=== PATIENT | female | born 1975 | race Caucasian/White ===

== ENCOUNTER 2017-09-01 10:22 | Inpatient (IN) | payer OTHER ==
[~2017-09-01] VITALS: Ht 160 cm; Wt 63.8 kg
[2017-09-01] MEDS ORDERED: hydrOXYzine HCL 50 MG TAB PO PRN (15:15)
[2017-09-01] MEDS ORDERED: ACETAMINOPHEN 325 MG TAB PO PRN (15:15)
[2017-09-01] MEDS ORDERED: MAGNESIUM HYDROXIDE SUSP 30 ML CUP PO PRN (15:15)
[2017-09-01] MEDS ORDERED: diphenhydrAMINE HCL 50 MG/ML VIAL IM PRN (15:15)
[2017-09-01] MEDS ORDERED: ALUMINUM/MAGNESIUM/SIMETH 30 ML CUP PO PRN (15:15)
[2017-09-01 16:59] VITALS: BP 115/69; PULSE 97; RESP 14; TEMP 98.2; O2SAT 98
--- NOTE | 2017-09-01 17:47 | HHI.HP ---
Provisional Diagnosis Admission Date Sep 01, 2017 at 12:54 [place] I. Unspecified psychosis Certification of Person's Competence To Provide Express and Informed Consent I have personally examined Pauly Cole , a person being served at [facility] on, Sep 01, 2017 17:24. Express and informed consent means consent voluntarily given in writing, by a competent person, after sufficient explanation and disclosure of the subject matter involved to enable the person to make a knowing and willful decision without any element of force, fraud, deceit, duress, or other form of constraint or coercion. This person is 18 years of age or older, is not now known to be incompetent to consent to treatment with a guardian advocate, and does not have a health care surrogate or proxy currently making medical treatment decisions. I have found this person to be one of the following: [] Competent to provide express and informed consent, as defined above, for voluntary admission to this facility and is competent to provide express and informed consent for treatment. He/she has the consistent capacity to make well reasoned, willful, and knowing decisions concerning his or her medical or mental health treatment. The person fully and consistently understands the purpose of the admission for examination/placement and is fully capable of personally exercising all rights assured [place] [x] Incompetent to provide express and informed consent to voluntary admission, and this is incompetent to provide express and informed consent to treatment. The person must be transferred to involuntary status and a petition for a guardian advocate filed with the Circuit Court. [] Refusing to provide express and informed consent to voluntary admission but is competent to provide express and informed consent for treatment. The person must be discharged or transferred to involuntary status. Form shall be completed within 24 hours of a person's arrival at the receiving facility and filed in the clinical record of each person: 1. Admitted on a voluntary basis 2. Permitted to provide express and informed consent to his/her own treatment 3. Allowed to transfer from involuntary to voluntary status 4. Prior to permitting a person to consent to his or her own treatment after having been previously found incompetent to consent to treatment. History of Present Illness Capacity: Lacks Capacity HPI Patient is a 42-year-old woman, single, no children, domicile appearance, unemployed, with unclear past psychiatric history, who was brought in under Ayala act from [facility] due to concern of acute psychosis in trying to harm herself which patient was admitted to the inpatient psychiatry unit for further evaluation and management. As per Ayala act, patient paranoid stating her work and put a camera down her stomach. Parents stayed patient has been putting her hand on her throat and attempted to retrieve a camera. States she tried to drink chemicals in order to not the camera but parents stopped her . As per documentation from notes from [facility], patient had presented to the ER with throat pain and upon evaluation had been talking to people who were not there and upon reevaluation patient was placed under Ayala act due to concern for self-harm and acute psychosis. As per urine toxicology done at [facility] patient was positive only for methadone but was noted to have an elevated white count on CBC (16.1), hCG was negative, blood alcohol level was negative. Patient was found lying in hospital bed, superficially cooperative with interview with inspector automatic typewriter and nurse. Patient states that she has not slept in many days and additionally stressed out recently and has not been eating well as well. Patient reports that her main stressor has been recent involvement with her boyfriend whom she had individualization 4 days ago and had previously been staying with him. Patient reports that she had had decreased sleep for the past 4 days, decreased appetite, feeling overwhelmed, decreased energy and concentration denies feeling sad or depressed denies any suicidal homicidal ideations at this time. Patient reports that this has not happened previously admitted the first time she has felt this way. She denies any racing thoughts, increased spending or risky behavior. Patient states that she was brought in by EMS activated by her parents stated they were concerned that she was having what her brother has referring to her brothers diagnosed schizophrenia. She states that she was throwing up in the bathroom and that her parents thought that she was doing "stuff like my brother". Patient states that she was actually trying to throw up. Patient signed reports feeling tired , denies any SI or HI, AVH or delusions at time of interview but also important that the patient was superficially cooperative noted be very somnolent during interview and reliability was low due to patient's superficially cooperative with interview. Past psychiatric history: Patient denies but as per collateral information obtained by nurse when speaking with mother over the phone stated the patient had a previous diagnosis of bipolar disorder, had a previous hospitalization in 2012, no previous medication trials, patient denies any previous suicide attempt or self-injurious behavior. Patient has history of opiate use disorder and on methadone maintenance treatment program for the past 8 years. Current clinic: In [facility] clinic which she last was seen 3 days ago and reports being a 70 mg of methadone. Family history: Brother with schizophrenia Substance use disorder: tobacco 1 pack per day, denies alcohol or any other drug use but does report previous opiate prescription abuse which she has been on methadone treatment program for the past 8 years. Past medical history: Denies allergies: NKDA Social history: Single, no children, unemployed, domicile with parents Collateral contact (mother) [phone] Review of Systems Except as stated in HPI: all other systems reviewed are Neg Past Psych History Violence risk - others (6 mos) Low Violence risk - self (6 mos) Elevated due to recent report of patient attempting to pour chemical down her throat and pull "camera" out of her stomach Substance Abuse History Drugs/Alcohol past 12 months tobacco 1 pack per day, denies alcohol or any other drug use but does report previous opiate prescription abuse which she has been on methadone treatment program for the past 8 years. Past Family Social History Coded Allergies: No Known Allergies (Unverified , 09/01/17) Current Medications Medications (Trade) Dose Ordered Sig/Edgar Route Start Time Stop Time Status Last Admin (Atarax) 50 mg Q6H PRN PO 09/01/17 15:15 (Benadryl) 50 mg Q6H PRN PO 09/01/17 15:15 (Benadryl Inj) 50 mg Q6H PRN IM 09/01/17 15:15 (Tylenol) 650 mg Q4H PRN PO 09/01/17 15:15 (Milk Of Magnesia Liq) 30 ml DAILY PRN PO 09/01/17 15:15 (Mag-Al Plus Susp Liq) 30 ml Q6H PRN PO 09/01/17 15:15 (Habitrol 21 Mg Patch.24 Hr) 1 patch DAILY T-DERMAL 09/02/17 09:00 Miscellaneous Information 1 HS T-DERMAL 09/01/17 21:00 (Dolophine) 10 mg Q8H PRN PO 09/01/17 16:30 Family Psych History Brother with schizophrenia Social History Single, no children, unemployed, domiciled with parents Patient's Strengths (min. 2) Verbal, access to care Physical Exam Patient noted to be in acute distress but noted to be very somnolent during interview and examination, not noted to have any tremors, signs of EPS nor any gross motor abnormalities noted. No noted psychomotor retardation or agitation noted. Vital Signs Vital Signs Date Time Temp Pulse Resp B/P (MAP) Pulse Ox O2 Delivery O2 Flow Rate FiO2 09/01/17 16:59 98.2 97 14 115/69 (84) 98 Mental Status Examination Appearance: Disheveled Consciousness: Somnolent Orientation: Person Speech: Slow, Incoherent (at times) Language: Adequate Fund of Knowledge: Inadequate Attention and Concentration: Inadequate Memory: Impaired Mood: Other ("overwhelmed") Affect: Blunt Thought Process & Associations: Other (concrete) Thought Content: Delusional Hallucination Type: None Delusion Type: Bizarre Suicidal Ideation: No Suicidal Plan: No Suicidal Intention: No Homicidal Ideation: No Homicidal Plan: No Homicidal Intention: No Insight: Poor Judgment: Poor Assessment & Plan Problem List: (1) Unspecified psychosis ICD Codes: F29 - Unspecified psychosis not due to a substance or known physiological condition Assessment & Plan Estimated LOS: 5-7 days. Patient is a 42-year-old woman with an alleged diagnosis of bipolar disorder as per collateral, although patient denies any history, opiate prescription use disorder on methadone maintenance treatment program for the past 8 years, was brought in under Respectance act from a different hospital due to acute psychosis as well as concern for self-harm due to the same which she was answered to the inpatient psychiatry for further evaluation and management. Patient upon interview noted to be very poor historian denying any symptomatology 9 history at this time is unreliable due to current presentation. As per Respectance act patient was noted to be psychotic and mother reported patient endorsing bizarre delusions of portion having put a camera in her throat and attempted to remove its manually as well as pour chemicals down her throat. We'll start risperidone 1 mg by mouth twice a day for psychosis. Confirmation pending of current Methadose at [place] meth[facility], for now methadone 10 mg by mouth daily to prevent withdrawal from opioids, labs ordered. Collateral information pending. Continue to encourage patient to maintain personal hygiene. Petition for involuntary hospitalization started, second opinion requested. Discharge planning in progress Discharge Planning Patient to return back to her parent's residence once psychiatrically stable. Levi Odonnell MD Sep 01, 2017 17:47
--- NOTE | 2017-09-01 18:15 | PD.CONS ---
HPI Service [facility] Hospitalists Consult Requested By psychiatry Reason for Consult Medical management. Primary Care Physician Keaton Rodríguez M.D. Diagnoses: History of Present Illness Ms. Cole is a 42 year old female with no significant medical history who was admitted to the psychiatry under Ayala act due to acute psychosis and delusional thoughts. Hospitalist service was consulted for medical management. At the time of this interview, patient denies any medical concerns. She requests to re-start her methadone. She goes to a methadone clinic and takes 70mg of Methadone daily. At this time, she denies any chest pain, shortness of breath, cough, fever, chills. No abdominal pain. No changes in bowel or bladder habits. Review of Systems Except as stated in HPI: all other systems reviewed are Neg Past Family Social History Allergies: Coded Allergies: No Known Allergies (Unverified , 09/01/17) Past Medical History No significant medical history. Past Surgical History No significant surgical history Family History No family history of heart disease, diabetes. Social History Smokes 1 ppd. Uses Methadone through a methadone clinic. Denies using any illicit drugs or using alcohol. Physical Exam Vital Signs Vital Signs Date Time Temp Pulse Resp B/P (MAP) Pulse Ox O2 Delivery O2 Flow Rate FiO2 09/01/17 16:59 98.2 97 14 115/69 (84) 98 Physical Exam GENERAL: This is a well-nourished, well-developed patient, in no apparent distress. Flat affect. SKIN: No rashes, ecchymoses or lesions. Warm and dry. HEAD: Atraumatic. Normocephalic. No temporal or scalp tenderness. EYES: Pupils equal round and reactive. No injection or drainage. ENT: Nose without bleeding, purulent drainage or septal hematoma. Airway patent. NECK: Trachea midline. No lymphadenopathy. Supple, nontender, no meningeal signs. CARDIOVASCULAR: Regular rate and rhythm without murmurs, gallops, or rubs. No JVD. RESPIRATORY: Clear to auscultation. Breath sounds equal bilaterally. No wheezes , rales, or rhonchi. GASTROINTESTINAL: Abdomen soft, non-tender, nondistended. No guarding. MUSCULOSKELETAL: Extremities without clubbing, cyanosis, or edema. NEUROLOGICAL: Awake and alert. Cranial nerves II through XII intact. No focal neurological deficits. Normal speech. Assessment and Plan Problem List: (1) Methadone maintenance therapy patient ICD Code: F11.20 - Opioid dependence, uncomplicated (2) Unspecified psychosis ICD Code: F29 - Unspecified psychosis not due to a substance or known physiological condition Assessment and Plan Ms. Cole is a 42 year old female with no significant medical history who was admitted to the psychiatry unit under Ayala act due to acute psychosis, delusional thoughts. Hospitalist service was consulted for medical management. - Acute psychosis - Management per psychiatry team. Patient was started on Risperidone. - Methadone maintenance therapy - Patient reports taking about 70mg of Methadone daily. - We can start patient on Methadone 10mg PO TID and taper her over the next 3 -4 days. - Patient is hemodynamically stable. Labs are pending and will review as they become available. Full code. Ambulation. Thank you for the consult. We will follow patient with you. Elen Mcnally DO Sep 01, 2017 6:15 pm
[2017-09-01] MEDS: NICOTINE 14 MG/24 HR PATCH T-DERMAL SCH (18:48)
[2017-09-01] MEDS: risperiDONE 1 MG TAB PO SCH ×2 (20:48→20:53)
[2017-09-01] MEDS: METHADONE HCL 10 MG TAB PO PRN (20:57)
[2017-09-01] MEDS ORDERED: REMOVE OLD NICOTINE PATCH T-DERMAL SCH (21:00)
[2017-09-02] MEDS: METHADONE HCL 10 MG TAB PO PRN (05:08)
[2017-09-02 06:00] VITALS: BP 129/78; PULSE 113; RESP 16; TEMP 97.4; O2SAT 100
[2017-09-02] MEDS: risperiDONE 1 MG TAB PO SCH ×2 (08:07→20:23)
[2017-09-02] MEDS: NICOTINE 14 MG/24 HR PATCH T-DERMAL SCH (08:08)
[2017-09-02] MEDS: REMOVE OLD PATCH T-DERMAL SCH (08:08)
[2017-09-02] MEDS ORDERED: NICOTINE 21 MG/24 HR PATCH T-DERMAL SCH (09:00)
[2017-09-02] MEDS ORDERED: METHADONE HCL 10 MG TAB PO ONE (13:45)
--- NOTE | 2017-09-02 14:04 | EKG ---
Date Performed: 09/01/2017 Time Performed: 16:50:09 PTAGE: 42 years EKG: Sinus rhythm WITH SINUS ARRHYTHMIA WITH SHORT MN INTERVAL BORDERLINE ECG NO PREVIOUS TRACING DOCTOR: Remington James Interpretating Date/Time 09/02/2017 14:02:54
--- NOTE | 2017-09-02 16:08 | HHI.PYPN ---
Subjective Remarks Patient was seen and case discussed with nursing. Patient continues to improve. She says she felt "overwhelmed" before admission. Denies having made any suicidal statements. Tolerating medications well. Sleeping and eating well. She is superficial during the interview and minimizes her psychotic behavior before admission Mental Status Examination Appearance: Disheveled Consciousness: Alert Orientation: Person, Place Speech: Slow, Incoherent (at times) Language: Adequate Fund of Knowledge: Inadequate Attention and Concentration: Adequate Memory: Impaired Mood: Other ("overwhelmed") Affect: Blunt Thought Process & Associations: Other (concrete) Thought Content: Bizarre thinking Hallucination Type: None Delusion Type: Bizarre Suicidal Ideation: No Suicidal Plan: No Suicidal Intention: No Homicidal Ideation: No Homicidal Plan: No Homicidal Intention: No Insight: Poor Judgment: Poor Results Vitals/IOs Vital Signs Date Time Temp Pulse Resp B/P (MAP) Pulse Ox O2 Delivery O2 Flow Rate FiO2 09/02/17 06:00 97.4 113 16 129/78 (95) 100 Assessment & Plan Problem List: (1) Unspecified psychosis ICD Codes: F29 - Unspecified psychosis not due to a substance or known physiological condition Assessment & Plan Appears improved from yesterday, continue current treatment plan Justification for Cont. Inpt. Patient would decompensate in a less restrictive setting Rodriguez Casiano DO Sep 02, 2017 16:08
[2017-09-02 18:21] VITALS: BP 137/83; PULSE 116; RESP 18; TEMP 97.9; O2SAT 100
[2017-09-02 18:23] VITALS: BP 137/83; PULSE 116; RESP 18; TEMP 97.9; O2SAT 100
[2017-09-02] MEDS: diphenhydrAMINE HCL 50 MG CAP PO PRN (20:25)
[2017-09-03 06:14] VITALS: BP 123/70; PULSE 110; RESP 18; TEMP 98.1; O2SAT 100
[2017-09-03] MEDS: NICOTINE 14 MG/24 HR PATCH T-DERMAL SCH (08:58)
[2017-09-03] MEDS: risperiDONE 1 MG TAB PO SCH ×2 (08:58→21:20)
[2017-09-03] MEDS: REMOVE OLD PATCH T-DERMAL SCH (08:58)
[2017-09-03] MEDS: METHADONE HCL 10 MG TAB PO SCH (08:59)
[2017-09-03 10:33] LABS: BASOPHIL # 0.1 TH/MM3 (0-0.2); BASOPHIL % 0.4 % (0.0-2.0); EOSINOPHIL # 0.2 TH/MM3 (0-0.4); EOSINOPHIL % 1.5 % (0.0-4.0); HEMATOCRIT 43.9 % (35.0-46.0); HEMO FLAGS DIFF FINAL; LYMPH % 34.2 % (9.0-44.0); LYMPHOCYTE # 4.7 TH/MM3 (1.0-4.8); MEAN CELL VOLUME 95.4 FL (80.0-100.0); MEAN CORPUSCULAR HEMOGLOBIN 32.3 PG (27.0-34.0); MEAN CORPUSCULAR HGB CONC 33.9 % (32.0-36.0); MONO % 5.9 % (0.0-8.0); PLATELET COUNT 266 TH/MM3 (150-450); RED CELL DISTRIBUTION WIDTH 14.8 % (11.6-17.2); WHITE BLOOD COUNT 13.7 TH/MM3 (4.0-11.0)
[2017-09-03 10:38] LABS: ANION GAP 7 MEQ/L (5-15); AST (GOT) 16 U/L (15-37); BLOOD UREA NITROGEN 10 MG/DL (7-18); CHLORIDE 102 MEQ/L (98-107); GLOMERULAR FILTRATION RATE 77 ML/MIN (>89); POTASSIUM 3.8 MEQ/L (3.5-5.1); SODIUM (NA) 138 MEQ/L (136-145)
[2017-09-03 10:48] LABS: ALKALINE PHOSPHATASE 78 U/L (45-117); ALT (GPT) 19 U/L (10-53); HDL CHOLESTEROL 54.1 MG/DL (40.0-60.0); INDIRECT BILIRUBIN 0.2 MG/DL (0.0-0.8); LDL CHOLESTEROL 91 MG/DL (0-99); TOTAL BILIRUBIN ADULT 0.3 MG/DL (0.2-1.0)
[2017-09-03 14:20] LABS: BACTERIA, URINE RARE /hpf; BLOOD, URINE SMALL (NEG); GLUCOSE,URINE NEG (NEG); KETONE, URINE 10 mg/dL (NEG); MUCUS URINE FEW /lpf (OCC); NITRITE,URINE NEG (NEG); PH, URINE 6.5 (5.0-8.5); SQUAMOUS EPITHELIAL CELL URINE 5 /hpf (0-5); TRANSITIONAL EPI CELLS, URINE <1 /hpf; URINE COLOR YELLOW (YELLW/STRAW)
[2017-09-03 14:21] LABS: COMMENT (UR) CULT NOT INDICATED; CULTURE IF INDICATED CULT NOT INDICATED
--- NOTE | 2017-09-03 16:44 | HHI.PYPN ---
Subjective Remarks Patient was seen and case discussed with nursing. Patient is pleasant and cooperative with exam. She continues to minimize her psychotic behavior before admission. She attributes this to lack of sleep. Nursing has not noted any bizarre behavior statements. No aggressive outbursts. Calm and pleasant during the interview. Tolerating her medications well Mental Status Examination Appearance: Appropriate Consciousness: Alert Orientation: x4, Person, Place Speech: Unremarkable Language: Adequate Fund of Knowledge: Adequate Attention and Concentration: Adequate Memory: Impaired Mood: Appropriate Affect: Appropriate, Blunt Thought Content: Appropriate Hallucination Type: None Delusion Type: Bizarre Suicidal Ideation: No Suicidal Plan: No Suicidal Intention: No Homicidal Ideation: No Homicidal Plan: No Homicidal Intention: No Insight: Poor Judgment: Poor Results Labs Test 09/03/17 09:15 09/03/17 13:30 White Blood Count 13.7 TH/MM3 Red Blood Count 4.60 MIL/MM3 Hemoglobin 14.9 GM/DL Hematocrit 43.9 % Mean Corpuscular Volume 95.4 FL Mean Corpuscular Hemoglobin 32.3 PG Mean Corpuscular Hemoglobin Concent 33.9 % Red Cell Distribution Width 14.8 % Platelet Count 266 TH/MM3 Mean Platelet Volume 8.5 FL Neutrophils (%) (Auto) 58.0 % Lymphocytes (%) (Auto) 34.2 % Monocytes (%) (Auto) 5.9 % Eosinophils (%) (Auto) 1.5 % Basophils (%) (Auto) 0.4 % Neutrophils # (Auto) 8.0 TH/MM3 Lymphocytes # (Auto) 4.7 TH/MM3 Monocytes # (Auto) 0.8 TH/MM3 Eosinophils # (Auto) 0.2 TH/MM3 Basophils # (Auto) 0.1 TH/MM3 CBC Comment DIFF FINAL Differential Comment Blood Urea Nitrogen 10 MG/DL Creatinine 0.81 MG/DL Random Glucose 143 MG/DL Total Protein 7.9 GM/DL Albumin 3.5 GM/DL Calcium Level 9.0 MG/DL Alkaline Phosphatase 78 U/L Aspartate Amino Transf (AST/SGOT) 16 U/L Alanine Aminotransferase (ALT/SGPT) 19 U/L Total Bilirubin 0.3 MG/DL Direct Bilirubin 0.1 MG/DL Sodium Level 138 MEQ/L Potassium Level 3.8 MEQ/L Chloride Level 102 MEQ/L Carbon Dioxide Level 29.0 MEQ/L Anion Gap 7 MEQ/L Estimat Glomerular Filtration Rate 77 ML/MIN Indirect Bilirubin 0.2 MG/DL Triglycerides Level 109 MG/DL Cholesterol Level 167 MG/DL LDL Cholesterol 91 MG/DL HDL Cholesterol 54.1 MG/DL Cholesterol/HDL Ratio 3.08 RATIO Free Thyroxine 1.87 NG/DL Thyroid Stimulating Hormone 3rd Gen 0.317 uIU/ML Urine Color YELLOW Urine Turbidity HAZY Urine pH 6.5 Urine Specific Russell 1.022 Urine Protein TRACE mg/dL Urine Glucose (UA) NEG mg/dL Urine Ketones 10 mg/dL Urine Occult Blood SMALL Urine Nitrite NEG Urine Bilirubin NEG Urine Urobilinogen 2.0 MG/DL Urine Leukocyte Esterase SMALL Urine RBC 2 /hpf Urine WBC 3 /hpf Urine Squamous Epithelial Cells 5 /hpf Urine Transitional Epithelial Cells <1 /hpf Urine Amorphous Sediment MANY Urine Bacteria RARE /hpf Urine Mucus FEW /lpf Microscopic Urinalysis Comment CULT NOT INDICATED Vitals/IOs Vital Signs Date Time Temp Pulse Resp B/P (MAP) Pulse Ox O2 Delivery O2 Flow Rate FiO2 09/03/17 06:14 98.1 110 18 123/70 (87) 100 Assessment & Plan Problem List: (1) Unspecified psychosis ICD Codes: F29 - Unspecified psychosis not due to a substance or known physiological condition Assessment & Plan Continue current treatment plan Justification for Cont. Inpt. Patient would decompensate in a less restrictive setting Rodriguez Casiano DO Sep 03, 2017 16:44
[2017-09-03 18:02] VITALS: TEMP 97.1
[2017-09-03] MEDS: diphenhydrAMINE HCL 50 MG CAP PO PRN (21:20)
[2017-09-04 00:15] VITALS: BP 114/75; PULSE 71; RESP 17; TEMP 98.1; O2SAT 99
[2017-09-04 05:27] VITALS: BP 176/85; PULSE 97; RESP 16; TEMP 97.3; O2SAT 100
[2017-09-04] MEDS: REMOVE OLD PATCH T-DERMAL SCH (08:26)
[2017-09-04] MEDS: METHADONE HCL 10 MG TAB PO SCH (08:26)
[2017-09-04] MEDS: NICOTINE 14 MG/24 HR PATCH T-DERMAL SCH (08:26)
[2017-09-04] MEDS: ATENOLOL 25 MG TAB PO SCH (08:26)
[2017-09-04] MEDS: risperiDONE 1 MG TAB PO SCH ×2 (08:26→21:41)
--- NOTE | 2017-09-04 11:42 | HHI.PYPN ---
Subjective Remarks Patient seen in [place] with nurse Cuca, chart review, patient compliant medications. Patient calm pleasant with me with good eye contact. Now states she had a "breakdown" after being up for a number of days and being in a chaotic relationship with a boyfriend. She states she is now will be moving in with her parents or supportive. Now denies having any camera and her abdomen realizing that this was a delusion. She denies suicidality homicidality voices or visions. Is acknowledge past addiction to opiates and has been on methadone for almost 8 years. She states she wishes to talk her methadone doctor to start tapering of that drug. For now continue observation the patient continues consistent with her behaviors consider discharge 1-2 days Review of Systems Except as stated in HPI: all other systems reviewed are Neg Mental Status Examination Appearance: Appropriate Consciousness: Alert Orientation: x4, Person, Place Speech: Unremarkable Language: Adequate Fund of Knowledge: Adequate Attention and Concentration: Adequate Memory: Impaired Mood: Appropriate Affect: Appropriate, Blunt Thought Content: Appropriate Hallucination Type: None Delusion Type: Bizarre Suicidal Ideation: No Suicidal Plan: No Suicidal Intention: No Homicidal Ideation: No Homicidal Plan: No Homicidal Intention: No Insight: Poor Judgment: Poor Results Labs Test 09/03/17 13:30 Urine Color YELLOW Urine Turbidity HAZY Urine pH 6.5 Urine Specific Jackson 1.022 Urine Protein TRACE mg/dL Urine Glucose (UA) NEG mg/dL Urine Ketones 10 mg/dL Urine Occult Blood SMALL Urine Nitrite NEG Urine Bilirubin NEG Urine Urobilinogen 2.0 MG/DL Urine Leukocyte Esterase SMALL Urine RBC 2 /hpf Urine WBC 3 /hpf Urine Squamous Epithelial Cells 5 /hpf Urine Transitional Epithelial Cells <1 /hpf Urine Amorphous Sediment MANY Urine Bacteria RARE /hpf Urine Mucus FEW /lpf Microscopic Urinalysis Comment CULT NOT INDICATED Vitals/IOs Vital Signs Date Time Temp Pulse Resp B/P (MAP) Pulse Ox O2 Delivery O2 Flow Rate FiO2 09/04/17 05:27 97.3 97 16 176/85 (115) 100 Assessment & Plan Problem List: (1) Brief psychotic disorder ICD Codes: F23 - Brief psychotic disorder Assessment & Plan Estimated LOS: days patient calm cooperative compliant medications. It appears psychosis is resolving. For now continue treatment Justification for Cont. Inpt. At this time patient may decompensate and placed in the lower level of care Discharge Planning Patient states will be moving in with parents once discharged. Request HC Surrog/Guard Advoc?: No Yehuda Stephens MD Sep 04, 2017 11:42
[2017-09-04 15:47] LABS: HEMOGLOBIN A1b 1.9 %; HEMOGLOBIN Ao 83.8 %; HEMOGLOBIN LA1C 2.2 %; HEMOGLOBIN P3 3.7 %
[2017-09-04 16:58] VITALS: BP 114/75; PULSE 71; RESP 18; TEMP 98.1; O2SAT 99
--- NOTE | 2017-09-04 17:04 | RADRPT ---
EXAM DATE/TIME: 09/04/2017 14:53 [place] COMPARISON: No previous studies available for comparison. INDICATIONS : Palpable thyroid nodule. MEDICAL HISTORY : Bipolar disorder. PTSD. SURGICAL HISTORY : None. ENCOUNTER: Initial ACUITY: 1 day PAIN SCORE: 0/10 LOCATION: Bilateral neck MEASUREMENTS: RIGHT LOBE: 7.3 x 2.4 x 1.5 cm LEFT LOBE: 6.0 x 2.1 x 2.0 cm FINDINGS: RIGHT LOBE: Multiple thyroid nodules. The majority of these are predominantly cystic with a anuel d 1.7 x 0.9 x 1.4 cm nodule in the lower lobe. Smaller, 0.9 x 0.4 x 0.9 cm solid nodule also in the l ower pole. Vascularity is within normal limits. LEFT LOBE: Multiple thyroid nodules. These are probably complex cystic and subcentimeter in size with one in the lower pole measuring 5 x 2 x 4 mm in the upper pole nodule measuring 3 x 2 x 3 mm. Vascularity is within normal limits. ISTHMUS: Normal in size without focal abnormality. CONCLUSION: Multiple bilateral nodules, predominantly cystic characteristic of multinodular goiter. Gilbert Russ MD on September 04, 2017 at 16:43 Board Certified Radiologist. This report was verified electronically.
--- NOTE | 2017-09-04 19:06 | HHI.PR ---
Subjective Remarks Follow up for tachycardia, hyperthyroidism. Patient is doing much better, in better mood. Ambulating well. She denies any chest pain, SOB, fever, chills. However, she does report that she has been feeling lump around her anterior throat. Objective Vitals Vital Signs Date Time Temp Pulse Resp B/P (MAP) Pulse Ox O2 Delivery O2 Flow Rate FiO2 09/04/17 16:58 98.1 71 18 114/75 (88) 99 09/04/17 05:27 97.3 97 16 176/85 (115) 100 Result Diagram: 09/03/1715 09/03/1715 Imaging Last Impressions Thyroid Ultrasound 09/04/17 0000 Signed Impressions: Service Date/Time: Monday, September 04, 2017 14:53 - CONCLUSION: Multiple bilateral nodules, predominantly cystic characteristic of multinodular goiter. Gilbert Russ MD Objective Remarks GENERAL: Alert, Oriented x 3, NAD. SKIN: Warm and dry. HEAD: Normocephalic. EYES: No scleral icterus. No injection or drainage. NECK: Supple, trachea midline. No JVD or lymphadenopathy. There is a mass palpated over the anterior neck. CARDIOVASCULAR: Regular rhythm, somewhat tachycardi without murmurs, gallops, or rubs. RESPIRATORY: Breath sounds equal bilaterally. No accessory muscle use. GASTROINTESTINAL: Abdomen soft, non-tender, nondistended. MUSCULOSKELETAL: No cyanosis, or edema. BACK: Nontender without obvious deformity. No CVA tenderness. A/P Problem List: (1) Methadone maintenance therapy patient ICD Code: F11.20 - Opioid dependence, uncomplicated (2) Unspecified psychosis ICD Code: F29 - Unspecified psychosis not due to a substance or known physiological condition (3) Hyperthyroidism ICD Code: E05.90 - Thyrotoxicosis, unspecified without thyrotoxic crisis or storm Assessment and Plan Ms. Cole is a 42 year old female with no significant medical history who was admitted to the psychiatry unit under Ayala act due to acute psychosis, delusional thoughts. Hospitalist service was consulted for medical management. - Acute psychosis - Management per psychiatry team. Patient was started on Risperidone. - Methadone maintenance therapy - Continue Methadone 70mg Qday (home med). - Hyperthyroidism - TSH 0.317 (low), Free T4 1.87 (high) - Thyroid US shows multinodular goiter. Thyroid immunoglobulin levels are pending. - Started patient on Atenolol 25mg Qday which can be titrated up. - Heart rate now is 71. - Will start patient on Methimazole 5mg Qday. - Strongly advised patient to follow up with an parcel post clerk (preferably) or Primary care provider. Full code. Ambulation. Elen Mcnally DO Sep 04, 2017 19:06
--- NOTE | 2017-09-04 19:07 | EKG ---
Date Performed: 09/04/2017 Time Performed: 07:28:39 PTAGE: 42 years EKG: Sinus rhythm NORMAL ECG PREVIOUS TRACING : 09/01/2017 16.50 Compared to prior tracing no significant change DOCTOR: Nasir Kaye Interpretating Date/Time 09/04/2017 19:06:11
[2017-09-05 07:00] VITALS: BP 110/65; PULSE 92; RESP 17; TEMP 98.2; O2SAT 97
[2017-09-05] MEDS: REMOVE OLD PATCH T-DERMAL SCH (08:51)
[2017-09-05] MEDS: NICOTINE 14 MG/24 HR PATCH T-DERMAL SCH (08:51)
[2017-09-05] MEDS: risperiDONE 1 MG TAB PO SCH (08:52)
[2017-09-05] MEDS: METHADONE HCL 10 MG TAB PO SCH (08:53)
[2017-09-05] MEDS: ATENOLOL 25 MG TAB PO SCH (08:53)
[2017-09-05] MEDS ORDERED: METHIMAZOLE 5 MG TAB PO SCH (09:00)
[2017-09-05] MEDS ORDERED: METH5 PO (14:00)
[2017-09-05] MEDS ORDERED: ATEN25TA PO (14:00)
[2017-09-05] MEDS ORDERED: RISP1 PO (14:11)
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
[2017-09-06 23:53] LABS: THYROGLOB ABS LESS THAN 1 IU/mL (< OR = 1)
== END 2017-09-05 16:20 | disposition home or self-care (01) | DRG 885 ==
LOC: H270 12:54 → H260 09-03 14:05
PROVIDERS: ADMIT Psychiatry & Neurology Psychiatry; ATTEND Psychiatry & Neurology Psychiatry
DX: F23 Brief psychotic disorder (principal); F11.20 Opioid dependence, uncomplicated; E05.90 Thyrotoxicosis, unspecified without thyrotoxic crisis or storm; F17.210 Nicotine dependence, cigarettes, uncomplicated
CPT/HCPCS: 76536; 80048; 80061; 80076; 81001; 83036; 84439; 84443; 85025; 86376; 86800; 93005; Q0163

== ENCOUNTER 2017-09-26 09:53 | Inpatient (IN) | payer OTHER ==
[~2017-09-26] VITALS: Ht 154.9 cm; Wt 60.9 kg
[~2017-09-26 09:53] MED LIST: ATEN25TA PO; METH5 PO; RISP1 PO
[2017-09-26] MEDS ORDERED: LORazepam 2 MG/ML VIAL IM PRN (12:15)
[2017-09-26] MEDS ORDERED: diphenhydrAMINE HCL 50 MG/ML VIAL IM PRN (12:15)
[2017-09-26] MEDS ORDERED: ALUMINUM/MAGNESIUM/SIMETH 30 ML CUP PO PRN (12:15)
[2017-09-26] MEDS ORDERED: diphenhydrAMINE HCL 50 MG CAP PO PRN (12:15)
[2017-09-26] MEDS ORDERED: MAGNESIUM HYDROXIDE SUSP 30 ML CUP PO PRN (12:15)
[2017-09-26] MEDS ORDERED: ACETAMINOPHEN 325 MG TAB PO PRN (12:15)
[2017-09-26] MEDS ORDERED: LORazepam 1 MG TAB PO PRN (12:15)
[2017-09-26] MEDS ORDERED: METH10TA PO (13:25)
[2017-09-26] MEDS ORDERED: ATEN1TAB73 PO (13:25)
[2017-09-26] MEDS ORDERED: RISP1 PO (13:25)
[2017-09-26] MEDS ORDERED: METH5 PO (13:25)
[2017-09-26] MEDS ORDERED: NICO21DI2 T-DERMAL (13:25)
[2017-09-26 13:43] VITALS: BP 135/68; PULSE 100; RESP 18; TEMP 98.6; O2SAT 99
[2017-09-26] MEDS ORDERED: METHADONE HCL 10 MG TAB PO ONE (14:15)
--- NOTE | 2017-09-26 17:26 | PD.CONS ---
HPI Service [facility] Hospitalists Consult Requested By Dr. Presley Reason for Consult Medical management Primary Care Physician Keaton Rodríguez M.D. Diagnoses: (1) Methadone use (2) Bipolar depression (3) Hyperthyroidism (4) Nodular thyroid disease History of Present Illness 42-year-old female with past medical history significant for chronic methadone use, tobacco abuse, psychosis, and recently diagnosed hyperthyroidism. Patient currently admitted to psychiatric unit due to bipolar depression. Reviewed chart patient was originally walked into [facility] after reported swallowing to pills that contain cyanide and she was afraid this might kill her. Patient was Ayala acted by emergency physician due to suicidal ideation and self injury. CBC with slightly elevated WBCs 13.9 BMP essentially unremarkable. Chest x-ray negative. She was transported to [facility] department for further evaluation and treatment. Medical team has been consultative for management of medications. Spoke with nurse who states that patient reportedly told him that she had taken 2 pills fabricated by patient's roommate. Patient is seen ambulating in the eason one moment and the next she is in tears and upset. I walk with her back to her room and introduce myself. She continue to cry and is visibly upset patient reports that she has been hearing voices that tell her to hurt herself. She tells me "I have prayed and they wont go away". Interview is limited as she is very upset, I also do not believe she is the best historian. Patient denies any nausea, vomiting, diarrhea, fever, chills or chest pains. When asked if she is having heart palpitations patient shakes her head "yes". Asked patient if she ever followed up with her primary care physician in regards to thyroid nodules or hyperthyroidism. Patient becomes upset in continues to cry and says no she has had too many things on her mind. She is unaware if she continue to take atenolol or methimazole. Review of Systems ROS Limitations: Poor Historian, Other (visibly upset and crying) Except as stated in HPI: all other systems reviewed are Neg Past Family Social History Allergies: Coded Allergies: No Known Allergies (Unverified , 09/01/17) Past Medical History Previous hospitalizations reviewed Bipolar depression Hyperthyroidism Past Surgical History Denies past surgical history Reported Medications Reported Meds & Active Scripts Active Reported Nicotine Patch (Nicotine) 21 Mg/24 Hr Patch 21 Mg T-DERMAL DAILY Tapazole (Methimazole) 5 Mg Tab 5 Mg PO DAILY Risperdal (Risperidone) 1 Mg Tab 1 Mg PO DAILY Methadone (Methadone HCl) 10 Mg Tab 70 Mg PO DAILY Tenormin (Atenolol) 25 Mg Tab 25 Mg PO DAILY Active Ordered Medications Current Medications Medications (Trade) Dose Ordered Sig/Edgar Route Start Time Stop Time Status Last Admin (Ativan) 1 mg Q6H PRN PO 09/26/17 12:15 (Ativan Inj) 1 mg Q6H PRN IM 09/26/17 12:15 (Benadryl) 50 mg Q6H PRN PO 09/26/17 12:15 (Benadryl Inj) 50 mg Q6H PRN IM 09/26/17 12:15 (Tylenol) 650 mg Q4H PRN PO 09/26/17 12:15 (Milk Of Magnesia Liq) 30 ml DAILY PRN PO 09/26/17 12:15 (Mag-Al Plus Susp Liq) 30 ml Q6H PRN PO 09/26/17 12:15 (Dolophine) 70 mg DAILY PO 09/27/17 09:00 (risperDAL) 1 mg BID PO 09/26/17 21:00 (Tapazole) 5 mg DAILY PO 09/27/17 09:00 (Tenormin) 25 mg DAILY PO 09/27/17 09:00 (Habitrol 21 Mg Patch.24 Hr) 1 patch DAILY T-DERMAL 09/27/17 09:00 Miscellaneous Information 1 HS T-DERMAL 09/26/17 21:00 Family History Patient does not report any family history, poor historian. No documented prior family history. Social History Tobacco: Physical Exam Vital Signs Vital Signs Date Time Temp Pulse Resp B/P (MAP) Pulse Ox O2 Delivery O2 Flow Rate FiO2 09/26/17 13:43 98.6 100 18 135/68 (90) 99 Physical Exam GENERAL: This is a well-nourished, well-developed patient, poorly groomed hair, visibly upset and tearful. SKIN: No rashes, ecchymoses or lesions. Cool and dry. HEAD: Atraumatic. Normocephalic. No temporal or scalp tenderness. EYES: Pupils equal round and reactive. Extraocular motions intact. No scleral icterus. No injection or drainage. ENT: Nose without bleeding, purulent drainage or septal hematoma. Throat without erythema. Uvula midline. Airway patent. NECK: Trachea midline. No JVD. Supple, nontender. CARDIOVASCULAR: Tachycardic with regular rhythm without murmurs, gallops, or rubs. RESPIRATORY: Exam limited due to crying. Able to appreciate breath sounds equal bilaterally. GASTROINTESTINAL: Abdomen soft, non-tender, nondistended. MUSCULOSKELETAL: Extremities without clubbing, cyanosis, or edema. No joint tenderness, effusion, or edema noted. No calf tenderness. Negative Homans sign bilaterally. NEUROLOGICAL: Awake and alert and oriented 3. Cranial nerves grossly intact. Motor and sensory grossly within normal limits, ambulating without any difficulties. Moves all extremities. Normal speech, no facial droop. Assessment and Plan Assessment and Plan 42-year-old female admitted to psychiatry after initially presenting to [facility] following reported ingestion of cyanide pills and subsequently Ayala acted by emergency department physician. Patient is currently in psychiatry Department, hospitalist consult for medical management. Bipolar depression, psychosis Reportedly ingesting cyanide tablets - Treatment plan per psychiatry Department - Continues to report hearing voices which are telling her to hurt herself - Labs ordered for tomorrow Hyperthyroidism - During patient's recent hospitalization this past August labs 09/03/17 TSH0.317/free T4 1 0.87 - Thyroid immunoglobulins negative - Thyroid ultrasound done 09/04/17 showing multiple bilateral nodules, predominantly cystic characteristic of multinodular goiter. - During patient's hospitalization at that time she was started on methimazole as well as atenolol. Patient is not aware if she continued these medications after discharge. - She has not yet followed up with PCP or file keeper regarding hyperthyroidism - Noted tachycardia with heart rate 100, she has also visibly upset contributing to tachycardia. - Restart atenolol 25 mg daily, monitor heart rate - Recheck TSH and free T4, too early to make dose changes on methimazole. Methadone use - Chronic use of methadone, 70 mg daily restarted by psych. Tobacco abuse - Nicotine patch DVT - Ambulating Discussed Condition With Nurse and Redd Kim Sep 26, 2017 17:26
[2017-09-26 18:39] VITALS: BP 125/58; PULSE 90; RESP 18; TEMP 97.5
[2017-09-26] MEDS: risperiDONE 1 MG TAB PO SCH ×2 (20:35→21:00)
[2017-09-26] MEDS: REMOVE OLD NICODERM (NICOTINE) PATCH T-DERMAL SCH (21:00)
[2017-09-27 05:58] VITALS: BP 114/55; PULSE 98; RESP 19; TEMP 97.7; O2SAT 99
[2017-09-27 08:16] LABS: AUTOMATED NEUTROPHIL # 8.9 TH/MM3 (1.8-7.7); BASOPHIL # 0.1 TH/MM3 (0-0.2); BASOPHIL % 0.8 % (0.0-2.0); EOSINOPHIL # 0.2 TH/MM3 (0-0.4); EOSINOPHIL % 1.3 % (0.0-4.0); HEMATOCRIT 40.5 % (35.0-46.0); HEMOGLOBIN 13.3 GM/DL (11.6-15.3); LYMPH % 30.2 % (9.0-44.0); LYMPHOCYTE # 4.3 TH/MM3 (1.0-4.8); MEAN CELL VOLUME 95.9 FL (80.0-100.0); MEAN CORPUSCULAR HEMOGLOBIN 31.4 PG (27.0-34.0); MEAN CORPUSCULAR HGB CONC 32.8 % (32.0-36.0); MEAN PLATELET VOLUME 8.5 FL (7.0-11.0); MONO % 5.2 % (0.0-8.0); MONOCYTE # 0.7 TH/MM3 (0-0.9); NEUT % 62.5 % (16.0-70.0); PLATELET COUNT 280 TH/MM3 (150-450); RED BLOOD COUNT 4.22 MIL/MM3 (4.00-5.30); RED CELL DISTRIBUTION WIDTH 14.5 % (11.6-17.2); WHITE BLOOD COUNT 14.2 TH/MM3 (4.0-11.0)
[2017-09-27 08:43] LABS: ALBUMIN 3.5 GM/DL (3.4-5.0); AST (GOT) 12 U/L (15-37); BICARBONATE 29.9 MEQ/L (21.0-32.0); BLOOD UREA NITROGEN 13 MG/DL (7-18); CALCIUM 9.1 MG/DL (8.5-10.1); CHLORIDE 100 MEQ/L (98-107); CREATININE 0.81 MG/DL (0.50-1.00); GLOMERULAR FILTRATION RATE 77 ML/MIN (>89); GLUCOSE,RANDOM 96 MG/DL (74-106); SODIUM (NA) 136 MEQ/L (136-145)
[2017-09-27] MEDS ORDERED: diphenhydrAMINE HCL 50 MG CAP PO PRN (08:45)
[2017-09-27] MEDS ORDERED: BENZTROPINE MESYLATE 2 MG/2 ML VIAL IM PRN (08:45)
[2017-09-27] MEDS ORDERED: BENZTROPINE MESYLATE 1 MG TAB PO PRN (08:45)
[2017-09-27] MEDS ORDERED: hydrOXYzine HCL 50 MG TAB PO PRN (08:45)
[2017-09-27] MEDS: NICOTINE 21 MG/24 HR PATCH T-DERMAL SCH (09:00)
[2017-09-27] MEDS ORDERED: METHADONE HCL 10 MG TAB PO SCH ×2 (09:00)
[2017-09-27 09:08] LABS: ALKALINE PHOSPHATASE 61 U/L (45-117); ALT (GPT) 13 U/L (10-53); CHOLESTEROL 159 MG/DL (120-200); CHOLESTEROL/ HDL RATIO 2.97 RATIO; FREE T4 1.44 NG/DL (0.76-1.46); HDL CHOLESTEROL 53.4 MG/DL (40.0-60.0); LDL CHOLESTEROL 82 MG/DL (0-99); TOTAL BILIRUBIN ADULT 0.2 MG/DL (0.2-1.0); TOTAL PROTEIN 7.3 GM/DL (6.4-8.2); TRIGLYCERIDES 120 MG/DL (42-150)
[2017-09-27] MEDS ORDERED: PILL SPLITTER OTHER PRN (09:15)
[2017-09-27] MEDS: METHIMAZOLE 5 MG TAB PO SCH (09:19)
[2017-09-27] MEDS: ATENOLOL 25 MG TAB PO SCH (09:19)
[2017-09-27] MEDS: risperiDONE 1 MG TAB PO SCH ×2 (09:20→21:22)
--- NOTE | 2017-09-27 09:24 | MH ---
cc: MILY NOEL DATE OF ADMISSION 09/26/2017 ADMITTING DIAGNOSIS 1. Psychotic disorder, F28. 2. Opiate dependence on methadone replacement therapy, F11.20 LEGAL STATUS The patient is capacitated to consent for admission and also for medication/treatment. Voluntary status. HISTORY OF PRESENT ILLNESS Ms. Cole is a 42-year-old female with a history of psychotic illness who presents in transfer from [facility] under a [employer] Act. Documentation from [facility] reviewed. It appears that the patient presented there saying that she had taken two pills given to her by her boyfriend that contained cyanide and kratom. The patient was seen in consultation at an outside hospital by Dr. Heck who diagnosed a psychotic disorder and opiate use disorder and recommended transfer to a [employer] Act receiving facility. Reviewing our own electronic medical record, I note that the patient was admitted in August [address] Stephens. She apparently believed at that time that she had a camera in her stomach. Patient seen and examined with nurse. Chart reviewed. Case discussed with nursing staff. On my examination today, the patient reports that she did not make a suicidal overdose. Rather she says that she was given two herbal pills by a friend named Katherine. She says that she thought that these were supposed to help with her depression but Katherine subsequently told her that they contained cyanide. The patient believes that Katherine was trying to poison her because Katherine's had taken a liking to the patient. She presently denies any suicidal or homicidal ideation. She does admit to auditory hallucinations of "whispers" for about the last three months. She denies any command auditory hallucinations to hurt herself or others. No other hallucinatory material. Besides the above report, which I believe is psychotic in nature, I can elicit no other paranoia, no ideas of reference or thought insertion or withdrawal. She does endorse intermittent anxiety. She also endorses low mood for three months with occasional feelings of hopelessness and worthlessness. Sleep is somewhat disrupted. No reported appetite disturbance. No hypomanic or manic symptoms presently, nor can I elicit any history of same. The remainder of the psychiatric ROS is negative. The patient has no physical complaints at this time besides a "burning stomach." With the patient's permission, I have obtained collateral information from her mother, Ny Arriola at [phone]. Ms. Arriola reports that following her discharge from the inpatient psychiatric unit last time the patient has been poorly adherent with her psychotropics as well as her medication for hyperthyroidism which was discovered during her last admission. She says that the patient has been increasingly paranoid. She told her parents that the cyanide pills had been provided to her by a boyfriend and that she was taking them as part of a suicidal overdose. Mother reports that the patient had a "breakdown" in 2011 and was delusional at that time as well but has no other psychiatric history. PAST PSYCHIATRIC HISTORY The patient has a history of psychotic illness. She follows at [facility] in [place]. She is prescribed Risperdal 1 mg twice daily and is reportedly adherent with this medication. Her only previous psychiatric admission by her report was here at [facility] in August. She denies a history of suicide attempts. She denies a history of non-suicidal self-injurious behavior. FAMILY HISTORY The patient reports her mother has depression. She denies any family history of substance use disorder or suicide. CHEMICAL DEPENDENCY HISTORY The patient endorses a history of opiate dependence, having started taking pain pills for chronic headache. She follows at the [facility] and reportedly receives 35 mg of methadone daily. She also smokes a pack a day of cigarettes. She denies any other substance use including cocaine, benzodiazepines, significant use of alcohol, synthetic drugs. SOCIAL HISTORY The patient lives with her parents. She is . She has no children. She does have one pet dog. She has a ninth grade education and says that she stopped going to school because she had difficulty paying attention. She is not presently working and has no income. She denies any history. Denies any legal history. Denies any access to guns or firearms. Denies any history of physical, verbal or sexual abuse or other trauma. She is a Orthodox. PAST MEDICAL HISTORY The patient has a history of primary hyperthyroidism. MEDICATIONS The patient is supposed to be takin. Methimazole 5 mg daily. 2. Atenolol 25 mg daily. 3. Methadone; reported dose is 35 mg daily. 4. Risperdal 1 mg twice daily. ALLERGIES No known allergies. REVIEW OF SYSTEMS Except as noted in the HPI, this is negative but somewhat limited because of psychosis. PHYSICAL EXAMINATION VITAL SIGNS: Temperature 97.7, pulse 98, respirations 19, blood pressure 114/55, pulse oximetry 99% on room air. Physical examination was completed by the hospitalist nursing consultant. On my examination today, the patient appears to be in no acute physical distress. No motor abnormalities noted. No signs of opiate or other withdrawal noted. LABORATORY Laboratories from outside hospital reviewed: CBC reveals mild leukocytosis with a white blood cell count of 13.9, hemoglobin within normal limits, platelet count within normal limits. BMP reveals mild hyperglycemia with a glucose of 112 in a nonfasting sample. Urine toxicology positive only for methadone. I do not see that an alcohol level was drawn. Urinalysis reveals 30 red blood cells but otherwise is unremarkable. No pyuria or leukocyte esterase/nitrites. EKG reveals sinus rhythm with a QTC of 389 milliseconds. MENTAL STATUS EXAMINATION The patient is casually dressed. She is well-groomed. She is awake and alert and oriented x4. No motor abnormality is noted. Steady gait and station. Speech has a somewhat nasal quality but is otherwise within normal limits for rate, tone and volume. Language and fund of knowledge average. Focus and concentration intact. Memory grossly intact on clinical exam. Mood is depressed and affect blunted, tending towards flat. Thought process linear. No loosening of associations. Paranoid delusions present. Denies audiovisual hallucinations. Denies suicidal or homicidal ideation at this time. Insight and judgment seem fair at best. ASSESSMENT AND PLAN This is a 42-year-old female with psychiatric history as detailed above who presents in transfer from outside hospital under a [employer] Act. I suspect that the patient's reported overdose on cyanide capsules is delusional in nature and consistent with her paranoid/somatic delusions that she had last time of having a camera in her abdomen. She apparently has been poorly adherent with her psychotropics. Differential diagnosis for current psychotic symptoms include primary psychotic illness, drug-induced psychotic illness, psychosis due to general medical condition, perhaps hyperthyroidism. It does not seem that a first break psychosis work-up has been completed and so it is prudent to do one now. The patient requires psychiatric hospitalization at this time for safety, observation and stabilization. Admit inpatient. Voluntary status. Initiate a first break psychosis work-up including MRI of the brain, ammonia, RPR, HIV, hepatitis panel, LUIS FERNANDO, B12. Dr. Presley has also ordered a vitamin D and a hospitalist consult. EKG completed. I will titrate the patient's Risperdal to 2 mg twice daily for the management of psychotic symptoms. Given reported medication compliance issues by patient's mother, we could consider long-acting injectable antipsychotic if this agent is efficacious. I will continue the patient's reported methadone dose of 35 mg daily and we will need to confirm the dose with her methadone clinic. I will continue the patient's methimazole and atenolol. The patient will be provided with Atarax as needed for anxiety, Cogentin as needed for EPS and Benadryl as needed for sleep. Vitals every shift. Counselor to see. Disposition planning. ESTIMATED LENGTH OF STAY 5-7 days. Mily Noel DC/AMBAR /8:20 AM /8:51 AM MTDChata
--- NOTE | 2017-09-27 09:26 | EKG ---
Date Performed: 09/27/2017 Time Performed: 07:21:01 PTAGE: 42 years EKG: Sinus rhythm NORMAL ECG PREVIOUS TRACING : 09/04/2017 07.28 DOCTOR: Hamlet Barrett Interpretating Date/Time 09/27/2017 09:25:46
[2017-09-27 13:09] LABS: HEPATITIS A AB IGM NEGATIVE (NEGATIVE); HEPATITIS B CORE AB IGM NEGATIVE (NEGATIVE); HEPATITIS B SURFACE ANTIGEN NEGATIVE (NEGATIVE); HEPATITIS C AB IgG NEGATIVE (NEGATIVE)
--- NOTE | 2017-09-27 13:59 | HHI.PR ---
Subjective Remarks Follow-up on 42-year-old female with past medical history significant for chronic methadone use, tobacco abuse, psychosis, and recently diagnosed hyperthyroidism. Patient seen and examined in her bedroom. She is awake and alert answering questions. She denies any headache, fevers, chills, shortness of breath, heart palpitations, chest pains. She reports that today she is feeling tired. Objective Vitals Vital Signs Date Time Temp Pulse Resp B/P (MAP) Pulse Ox O2 Delivery O2 Flow Rate FiO2 09/27/17 05:58 97.7 98 19 114/55 (74) 99 09/26/17 18:39 97.5 90 18 125/58 (80) Result Diagram: 09/27/17 0756 09/27/17 0756 Objective Remarks GENERAL: This is a well-nourished, well-developed patient, poorly groomed hair. SKIN: No rashes, ecchymoses or lesions. Cool and dry. HEAD: Atraumatic. Normocephalic. EYES: Pupils equal round and reactive. Extraocular motions intact. No scleral icterus. No injection or drainage. ENT: Nose without bleeding, purulent drainage or septal hematoma. Airway patent. NECK: Trachea midline. No JVD. Supple, nontender. CARDIOVASCULAR: Regular rhythm and rate without murmurs, gallops, or rubs. RESPIRATORY: Bilateral lung sounds clear, breath sounds equal bilaterally. GASTROINTESTINAL: Abdomen soft, non-tender, nondistended. MUSCULOSKELETAL: Extremities without clubbing, cyanosis, or edema. No joint tenderness, effusion, or edema noted. NEUROLOGICAL: Awake and alert and oriented 3. Cranial nerves grossly intact. Motor and sensory grossly within normal limits, ambulating without any difficulties. Moves all extremities. Normal speech, no facial droop. A/P Problem List: (1) Methadone use ICD Code: F11.20 - Opioid dependence, uncomplicated (2) Bipolar depression ICD Code: F31.30 - Bipolar disorder, current episode depressed, mild or moderate severity, unspecified (3) Hyperthyroidism ICD Code: E05.90 - Thyrotoxicosis, unspecified without thyrotoxic crisis or storm (4) Nodular thyroid disease ICD Code: E04.1 - Nontoxic single thyroid nodule Assessment and Plan 42-year-old female admitted to psychiatry after initially presenting to [facility] following reported ingestion of cyanide pills and subsequently Ayala acted by emergency department physician. Patient is currently in psychiatry Department, hospitalist consult for medical management. Bipolar depression, psychosis Reportedly ingesting cyanide tablets - Treatment plan per psychiatry Department - In better mood today. Psych continues workup, patient will be going for MRI today - CBC reviewed, slight leukocytosis with no shift, afebrile. Continue monitoring for now. CMP unremarkable. Hyperthyroidism - During patient's recent hospitalization this past August labs 09/03/17 TSH0.317/free T4 1 0.87 - Thyroid immunoglobulins negative - Thyroid ultrasound done 09/04/17 showing multiple bilateral nodules, predominantly cystic characteristic of multinodular goiter. - During patient's hospitalization at that time she was started on methimazole as well as atenolol. Patient is not aware if she continued these medications after discharge. - She has not yet followed up with PCP or vice president of customer service regarding hyperthyroidism - Tachycardia improved. - Continue atenolol 25 mg daily, monitor heart rate - Checked TSH 0.687/free T4 1.44, continue methimazole. Will need labs rechecked in 3 weeks. Vitamin D deficiency - level 22.7, started on Cholecalciferol 1,000units daily Methadone use - Chronic use of methadone 50mg administered yesterday. Spoke with nurse who states patient has been very sleepy today, we'll be calling methadone clinic to verify dose. Currently on Methadone 35 mg daily. Tobacco abuse - Nicotine patch DVT - Ambulating Redd Busby Sep 27, 2017 13:59
[2017-09-27] MEDS: REMOVE OLD NICODERM (NICOTINE) PATCH T-DERMAL SCH (21:00)
[2017-09-28 06:34] VITALS: BP 121/66; PULSE 88; RESP 16; TEMP 97.7; O2SAT 98
[2017-09-28] MEDS: CHOLECALCIFEROL (VIT D3) 1000 UNIT TAB PO SCH (08:01)
[2017-09-28] MEDS: ATENOLOL 25 MG TAB PO SCH (08:01)
[2017-09-28] MEDS: METHIMAZOLE 5 MG TAB PO SCH (08:01)
[2017-09-28] MEDS: risperiDONE 1 MG TAB PO SCH ×2 (08:01→20:50)
[2017-09-28] MEDS: METHADONE HCL 10 MG TAB PO SCH (08:02)
[2017-09-28] MEDS: NICOTINE 21 MG/24 HR PATCH T-DERMAL SCH (08:03)
[2017-09-28 10:13] LABS: BASOPHIL % 0.5 % (0.0-2.0); EOSINOPHIL # 0.2 TH/MM3 (0-0.4); EOSINOPHIL % 2.1 % (0.0-4.0); HEMOGLOBIN 12.6 GM/DL (11.6-15.3); LYMPH % 30.5 % (9.0-44.0); LYMPHOCYTE # 2.5 TH/MM3 (1.0-4.8); MEAN CELL VOLUME 96.1 FL (80.0-100.0); MEAN CORPUSCULAR HEMOGLOBIN 31.9 PG (27.0-34.0); MEAN CORPUSCULAR HGB CONC 33.2 % (32.0-36.0); MONO % 6.4 % (0.0-8.0); MONOCYTE # 0.5 TH/MM3 (0-0.9); NEUT % 60.5 % (16.0-70.0); PLATELET COUNT 214 TH/MM3 (150-450); RED BLOOD COUNT 3.96 MIL/MM3 (4.00-5.30); RED CELL DISTRIBUTION WIDTH 14.3 % (11.6-17.2); WHITE BLOOD COUNT 8.3 TH/MM3 (4.0-11.0)
--- NOTE | 2017-09-28 12:40 | HHI.PYPN ---
Subjective Chief Complaint: psychosis Remarks Patient seen and examined with nurse. Chart reviewed. Nurse confirmed dose with methadone clinic and the patient takes 30 mg a day of methadone. Case discussed with nursing staff. Patient reportedly refusing MRI of the brain. On my examination today, the patient complains of feeling quite anxious. She does not feel up to having the MRI study performed. I have explained the need to obtain this study to rule out structural neurological causes for patient symptoms, but she continues to decline the study. She denies any suicidal or homicidal ideation. No reported audiovisual hallucinations but remains internally stimulated. Denies side effects from medications. No physical complaints. Review of Systems ROS Limitations: Psychotic, Poor Historian Except as stated in HPI: all other systems reviewed are Neg Mental Status Examination Appearance: Appropriate Consciousness: Alert Orientation: Person, Place (at least) Motor Activity: Normal gait, Other (no motor abnormalities noted) Speech: Unremarkable Language: Adequate Fund of Knowledge: Adequate Attention and Concentration: Adequate Memory: Unremarkable (grossly intact on clinical exam) Mood: Anxious Affect: Anxious, Other (decreased affective range) Thought Process & Associations: Circumstantial Thought Content: Hallucinations Hallucination Type: Auditory (appears internally preoccupied) Delusion Type: Other (no delusions elicited but suspect some degree of underlying paranoia ongoing) Suicidal Ideation: No Homicidal Ideation: No Insight: Fair Judgment: Impulsive Results Labs Item Value Date Time White Blood Count 8.3 TH/MM3 09/28/17 0920 Hemoglobin 12.6 GM/DL 09/28/17 0920 Platelet Count 214 TH/MM3 09/28/17 0920 Ammonia 14 MCMOL/L 09/27/17 1025 Beta HCG, Qualitative 1 MIU/ML 09/27/17 0756 Rapid Plasma Reagin NON-REACTIVE 09/27/17 1023 Hepatitis A IgM Antibody NEGATIVE 09/27/17 1023 Hepatitis B Surface Antigen NEGATIVE 09/27/17 1023 Hepatitis B Core IgM Antibody NEGATIVE 09/27/17 1023 Hepatitis C Antibody NEGATIVE 09/27/17 1023 HIV (1&2) Antibody NEGATIVE 09/27/17 1023 Labs reviewed. Leukocytosis normalized. Serologies negative. Vitals/IOs Vital Signs Date Time Temp Pulse Resp B/P (MAP) Pulse Ox O2 Delivery O2 Flow Rate FiO2 09/28/17 06:34 97.7 88 16 121/66 (84) 98 Assessment & Plan Problem List: (1) Other psychotic disorder not due to a substance or known physiological condition ICD Codes: F28 - Other psychotic disorder not due to a substance or known physiological condition (2) Methadone maintenance therapy patient ICD Codes: F11.20 - Opioid dependence, uncomplicated Assessment & Plan Continue Risperdal 2mg BID to target psychosis with plans for further titration to effect and as tolerated. To consider replacing Risperdal with more sedating/ calming antipsychotic like Seroquel or Zyprexa although adherence issues would make an agent with available [place] preferable. Continue to monitor on the inpatient unit. I have encouraged the patient to participate in groups and unit activities. Continue other medications and care as ordered. Justification for Cont. Inpt. Impairment in reality construction. Risk for decompensation in less restrictive environment. Discharge Planning Pending psychiatric stabilization. Request HC Surrog/Guard Advoc?: No Keaton Noel MD Sep 28, 2017 12:40
--- NOTE | 2017-09-28 16:54 | HHI.PR ---
Subjective Remarks Follow-up on 42-year-old female with past medical history significant for chronic methadone use, tobacco abuse, psychosis, and recently diagnosed hyperthyroidism. Patient is seen and examined in day room. She is in a better mood today and is smiling. She tells me she is trying to get better. She denies any fevers, chills, nausea, vomiting, diarrhea. She is also denying any chest pains, or heart palpitations. Objective Vitals Vital Signs Date Time Temp Pulse Resp B/P (MAP) Pulse Ox O2 Delivery O2 Flow Rate FiO2 09/28/17 06:34 97.7 88 16 121/66 (84) 98 Result Diagram: 09/28/17 0920 09/27/17 0755 Objective Remarks GENERAL: This is a well-nourished, well-developed patient, poorly groomed hair. SKIN: No rashes, ecchymoses or lesions. Cool and dry. HEAD: Atraumatic. Normocephalic. EYES: Pupils equal round and reactive. Extraocular motions intact. No scleral icterus. No injection or drainage. ENT: Nose without bleeding, purulent drainage or septal hematoma. Airway patent. NECK: Trachea midline. No JVD. CARDIOVASCULAR: Regular rhythm and rate without murmurs, gallops, or rubs. RESPIRATORY: Bilateral lung sounds clear, breath sounds equal bilaterally. GASTROINTESTINAL: Abdomen soft, non-tender, nondistended. MUSCULOSKELETAL: Extremities without clubbing, cyanosis, or edema. No joint tenderness, effusion, or edema noted. NEUROLOGICAL: Awake and alert and oriented 3. Cranial nerves grossly intact. Motor and sensory grossly within normal limits, ambulating without any difficulties. Moves all extremities. Normal speech, no facial droop. A/P Problem List: (1) Methadone use ICD Code: F11.20 - Opioid dependence, uncomplicated (2) Bipolar depression ICD Code: F31.30 - Bipolar disorder, current episode depressed, mild or moderate severity, unspecified (3) Hyperthyroidism ICD Code: E05.90 - Thyrotoxicosis, unspecified without thyrotoxic crisis or storm (4) Nodular thyroid disease ICD Code: E04.1 - Nontoxic single thyroid nodule Assessment and Plan 42-year-old female admitted to psychiatry after initially presenting to [facility] following reported ingestion of cyanide pills and subsequently Ayala acted by emergency department physician. Patient is currently in psychiatry Department, hospitalist consult for medical management. Bipolar depression, psychosis Reportedly ingesting cyanide tablets - Treatment plan per psychiatry Department - In better mood today. Psych continues workup, patient refused MRI as she reported feeling anxious - CBC reviewed this morning CBC 8.3 Hyperthyroidism - During patient's recent hospitalization this past August labs 09/03/17 TSH0.317/free T4 1 0.87 - Thyroid immunoglobulins negative - Thyroid ultrasound done 09/04/17 showing multiple bilateral nodules, predominantly cystic characteristic of multinodular goiter. - During patient's hospitalization at that time she was started on methimazole as well as atenolol. Patient is not aware if she continued these medications after discharge. - She has not yet followed up with PCP or fretted instruments inspector regarding hyperthyroidism - Tachycardia improved. - Continue atenolol 25 mg daily, monitor heart rate - Checked TSH 0.687/free T4 1.44, continue methimazole. Will need labs rechecked in 3 weeks. Vitamin D deficiency - level 22.7, started on Cholecalciferol 1,000units daily Methadone use - Chronic use of methadone 30 mg daily Tobacco abuse - Nicotine patch DVT - Ambulating Redd Busby Sep 28, 2017 16:54
[2017-09-28 18:16] VITALS: BP 110/69; PULSE 94; RESP 17; TEMP 97.7; O2SAT 97
[2017-09-28] MEDS: REMOVE OLD NICODERM (NICOTINE) PATCH T-DERMAL SCH (20:51)
[2017-09-29 06:29] VITALS: BP 113/55; PULSE 89; RESP 16; TEMP 97.9; O2SAT 98
[2017-09-29] MEDS: NICOTINE 21 MG/24 HR PATCH T-DERMAL SCH (08:11)
[2017-09-29] MEDS: CHOLECALCIFEROL (VIT D3) 1000 UNIT TAB PO SCH (08:12)
[2017-09-29] MEDS: risperiDONE 1 MG TAB PO SCH (08:12)
[2017-09-29] MEDS: METHADONE HCL 10 MG TAB PO SCH (08:12)
[2017-09-29] MEDS: ATENOLOL 25 MG TAB PO SCH (08:12)
[2017-09-29] MEDS: METHIMAZOLE 5 MG TAB PO SCH (08:12)
--- NOTE | 2017-09-29 09:34 | PD.TTN ---
Patient Problems 1. Discharge planning 2. Medication compliance 3. Knowledge deficit 4. Lack of coping skills Progress Toward Goals Provider Present: Dr. Mic Noel Provider Input: 09/29/2017 - Patient is on methadone maintence and her Risperdal will be titrated by Dr. Noel. Psychiatric Counselors Present: CHARLES Burgos Psych Therapist Input: 09/29/2017 - Counselor reported the patient appeared nervous and anxious. Patient was observed by this counselor pacing the hallway and appropriately interacting with peers. Group Spec/RT/OT/ARVIZU Present: [facility] Group Spec/RT/OT/ARVIZU Input: 09/29/2017 - Patient did attend spirituality group, however, she reported feeling anxious and requested to return to the unit. Discharge Plan SMA Patient will be discharged home when deemed stable. Documentation Scribe: CHARLES Burgos Date Resolved: Sep 29, 2017 Zeina Mondragon Sep 29, 2017 09:34
[2017-09-29] MEDS ORDERED: METH5 PO (10:57)
[2017-09-29] MEDS ORDERED: ATEN1TAB73 PO (10:57)
[2017-09-29] MEDS ORDERED: METH10TA PO (10:57)
[2017-09-29] MEDS ORDERED: RISP1 PO (10:57)
[2017-09-29] MEDS ORDERED: CHOL1000 PO (10:57)
[2017-09-29] MEDS ORDERED: Benztropine PO (10:57)
--- NOTE | 2017-09-29 10:57 | HHI.DS ---
Psychiatry Discharge Summary Inpatient Psychiatric care?: Yes Advance Directive: No Reason Not Provided: Due to Patient Condition Mental Health AdvanceDirective: No Health Care Proxy: No Admission Admission Date Sep 26, 2017 at 11:55 Admission Diagnosis: (1) Other psychotic disorder not due to a substance or known physiological condition ICD Code: F28 - Other psychotic disorder not due to a substance or known physiological condition (2) Long-term current use of methadone for opiate dependence ICD Code: F11.20 - Opioid dependence, uncomplicated Brief History Ms. Cole is a 42-year-old female with a history of psychotic illness who presents in transfer from [facility] under a [employer] Act. Documentation from [facility] reviewed. It appears that the patient presented there saying that she had taken two pills given to her by her boyfriend that contained cyanide and kratom. The patient was seen in consultation at an outside hospital by Dr. Heck who diagnosed a psychotic disorder and opiate use disorder and recommended transfer to a [facility] receiving facility. Reviewing our own electronic medical record, I note that the patient was admitted in August [address] Stephens. She apparently believed at that time that she had a camera in her stomach. Patient seen and examined with nurse. Chart reviewed. Case discussed with nursing staff. On my examination today, the patient reports that she did not make a suicidal overdose. Rather she says that she was given two herbal pills by a friend named Katherine. She says that she thought that these were supposed to help with her depression but Katherine subsequently told her that they contained cyanide. The patient believes that Katherine was trying to poison her because Katherine's had taken a liking to the patient. She presently denies any suicidal or homicidal ideation. She does admit to auditory hallucinations of "whispers" for about the last three months. She denies any command auditory hallucinations to hurt herself or others. No other hallucinatory material. Besides the above report, which I believe is psychotic in nature, I can elicit no other paranoia, no ideas of reference or thought insertion or withdrawal. She does endorse intermittent anxiety. She also endorses low mood for three months with occasional feelings of hopelessness and worthlessness. Sleep is somewhat disrupted. No reported appetite disturbance. No hypomanic or manic symptoms presently, nor can I elicit any history of same. The remainder of the psychiatric ROS is negative. The patient has no physical complaints at this time besides a "burning stomach." Tobacco Use In Past 30 Days: 4 or Less Cigarettes/Day Alcohol Use: Never Hospital Course Patient was admitted to a locked, inpatient psychiatric unit. A general medical consultation was obtained. Appropriate precautions were in place throughout patient's hospital stay. Patient was seen and examined on the unit by psychiatry and also visited by counselor. Psychotropic medications were adjusted. Patient tolerated medication changes well without significant side effects. Patient had improvement in presenting psychiatric symptomatology during the course of her hospital stay. There was no evidence of any suicidality or homicidality on the inpatient unit. The patient remained in good behavioral control and was medication compliant. On the day of discharge: Patient seen and examined with nurse. Chart reviewed. Case discussed with nursing staff. No behavioral issues overnight. Case discussed in treatment team with counselor and occupational therapist. On my examination today, the patient is requesting discharge from the inpatient psychiatric unit today. She denies any suicidal or homicidal ideation, intent or plan on direct questioning and contracts for safety. I can elicit no depressive or hypomanic/manic symptoms in this patient at this time. She denies any audiovisual hallucinations but still appears a little internally preoccupied. No command auditory hallucinations. No delusional material elicited. She says that she feels anxious being from her parents and feels that she would do better at home at this point. She denies any side effects from medications besides some mild stiffness, which she associates with Risperdal. I have discussed with patient adding Cogentin to counteract this side effect, and I have prescribed a p.r.n. dose of this medication on discharge. I did recommend long-acting injectable antipsychotic given history of medication nonadherence, but the patient declines presently. No other physical complaints. With the patient's permission I have obtained collateral from her parents on the day of discharge. Parents have no concern about the patient being discharged home today. Mother in particular does not see any benefit to the patient remaining over the weekend and says that she feels the patient is better off at home. I have recommended to patient's parents that they secure the home of all potential means of harm to self/others including but not limited to guns, knives and medications. I have also reminded them that they can have the patient brought back for urgent psychiatric evaluation by utilizing the [place] act or ex parte. Suicide and violence risk assessment on day of discharge both suggest lower imminent risk. The patient's level of function is adequate for outpatient care. The patient does not meet criteria for involuntary psychiatric hospitalization at this time. I have strongly recommended that she remain on the inpatient unit for further stabilization, but she has declined. Given that I have no basis to retain the patient over her objection at this time , I must arrange for her discharge home today with psychiatric follow-up as arranged by counselor. Patient is also to follow-up with primary care. I have counseled the patient to return to the psychiatric emergency room for any concerning symptoms as part of a general safety plan. Results Blood Pressure 113 / 55 Vital Signs Date Time Temp Pulse Resp B/P (MAP) Pulse Ox O2 Delivery O2 Flow Rate FiO2 09/29/17 06:29 97.9 89 16 113/55 (74) 98 Laboratory Tests Test 09/27/17 07:56 09/27/17 10:23 09/27/17 10:25 09/28/17 09:20 White Blood Count 14.2 TH/MM3 (4.0-11.0) Neutrophils # (Auto) 8.9 TH/MM3 (1.8-7.7) Aspartate Amino Transf (AST/SGOT) 12 U/L (15-37) Estimat Glomerular Filtration Rate 77 ML/MIN (>89) 25-Hydroxy Vitamin D Total 22.7 ng/ML (30-100) Red Blood Count 3.96 MIL/MM3 (4.00-5.30) Laboratory Results Test 09/27/17 07:56 Cholesterol Level 159 MG/DL (120-200) HDL Cholesterol 53.4 MG/DL (40.0-60.0) Hemoglobin A1c 6.0 % (4.3-6.0) LDL Cholesterol 82 MG/DL (0-99) Triglycerides Level 120 MG/DL (42-150) Summary of Procedures None done Imaging Patient refused MRI brain. Pending results at discharge: No (LUIS FERNANDO neg) Medications # of Antipsychotic meds at D/C: 1 Approp Antipsych med options 1 - Minimum of three failed multiple trials of monotherapy. 2 - Documented plan to taper to monotherapy due to previous use of multiple meds OR cross-taper in progress at D/C. 3 - Documentation of augmentation of Clozapine. 4 - Justification other than those listed in allowable values 1-3, document here : Discharge Discharge Date: Sep 29, 2017 Discharge Diagnosis: (1) Other psychotic disorder not due to a substance or known physiological condition Diagnosis: Principal ICD Code: F28 - Other psychotic disorder not due to a substance or known physiological condition (2) Long-term current use of methadone for opiate dependence Diagnosis: Secondary ICD Code: F11.20 - Opioid dependence, uncomplicated Pt Condition on Discharge: Stable Discharge Disposition: Discharge Home Discharge Instructions Diet Instructions: As Tolerated, No Restrictions Activities you can perform: Weight Bearing as Sy Scheduled Appointment: Ollie Avalos Appointment Date: Oct 05, 2017 Appointment Time: 1:40 p.m. New Orders: FREE T4 - 3 Weeks TSH 3RD GEN - 3 Weeks VITAMIN D,25-HYDROXY - 2 Months New Medications: Cholecalciferol (Gnp Vitamin D3 Extra Stre) 1,000 Unit Tab 1000 UNITS PO DAILY for Vitamin D for 15 Days, TAB 1 Refill Methadone (Methadone) 10 Mg Tab 30 MG PO DAILY for Methadone maintenance for 1 Day, #3 TAB 0 Refills Order is to update med rec only. Pt in methadone program. Risperidone (Risperdal) 1 Mg Tab 2 MG PO BID for Mental Health for 15 Days, #60 TAB 1 Refill [Benztropine] () 1 MG TAB 1 MG PO Q12HR PRN for EXTRA PYRAMIDAL SYMPTOMS for 15 Days, 1 Refill Continued Medications: Atenolol (Tenormin) 25 Mg Tab 25 MG PO DAILY for hyperthyroid for 15 Days, #15 TAB 1 Refill (This prescription has been renewed) Methimazole (Tapazole) 5 Mg Tab 5 MG PO DAILY for Thyroid for 15 Days, #15 TAB 1 Refill (This prescription has been renewed) Nicotine Patch (Nicotine Patch) 21 Mg/24 Hr Patch 21 MG T-DERMAL DAILY for Smoking Cessation, #30 PATCH 0 Refills Discontinued Medications: Methadone (Methadone) 10 Mg Tab 70 MG PO DAILY, TAB 0 Refills Risperidone (Risperdal) 1 Mg Tab 1 MG PO DAILY, #30 TAB 0 Refills Discharge Time > 30 minutes Mental Status Examination Appearance: Appropriate Consciousness: Alert Orientation: x4 Motor Activity: Normal gait, Other (no hand tremor, no cogwheeling, minimal hypomimia, no dystonias, no dyskinesias noted, no other motor abnormalities noted.) Speech: Unremarkable Language: Adequate Fund of Knowledge: Adequate Attention and Concentration: Adequate Memory: Unremarkable Mood: Anxious (mild) Affect: Blunt Thought Process & Associations: Intact, Linear Thought Content: Appropriate Hallucination Type: Other (denies AVH but appears mildly internally stimulated) Delusion Type: None Suicidal Ideation: No Suicidal Plan: No Suicidal Intention: No Homicidal Ideation: No Homicidal Plan: No Homicidal Intention: No Insight: Fair Judgment: Adequate (fair at best) Discharge/Advance Care Plan Health Problems: (1) Other psychotic disorder not due to a substance or known physiological condition (2) Methadone maintenance therapy patient Goals to promote your health * To prevent worsening of your condition and complications * To maintain your health at the optimal level Directions to meet your goals Take your medications as prescribed Follow your dietary instruction Follow activity as directed Keep your appointments as scheduled Take your immunizations and boosters as scheduled If your symptoms worsen call your PCP, if no PCP go to Urgent Care Center or Emergency Room For 17/04 questions related to your inpatient stay or results of tests pending at discharge, please contact Dr. Keaton Noel at Smoking is Dangerous to Your Health. Avoid second hand smoking Keaton Noel MD Sep 29, 2017 10:57
[2017-09-29 14:51] LABS: ANA SCREEN NEG (NEG)
== END 2017-09-29 13:30 | disposition home or self-care (01) | DRG 885 ==
LOC: H260 11:55
PROVIDERS: ADMIT Psychiatry & Neurology Psychiatry; ATTEND Psychiatry & Neurology Psychiatry
DX: F28 Other psychotic disorder not due to a substance or known physiological condition (principal); F11.20 Opioid dependence, uncomplicated; E05.20 Thyrotoxicosis with toxic multinodular goiter without thyrotoxic crisis or storm; F17.210 Nicotine dependence, cigarettes, uncomplicated; Z91.19 Patient's noncompliance with other medical treatment and regimen; E55.9 Vitamin D deficiency, unspecified; R00.0 Tachycardia, unspecified
CPT/HCPCS: 80053; 80061; 80074; 82140; 82306; 82607; 83036; 84439; 84443; 84703; 85025; 86038; 86592; 86703; 93005